=== PATIENT | female | born 1995 | race Caucasian/White ===

== ENCOUNTER 2019-01-10 01:10 | Outpatient (CLI) | payer OTHER ==
[~2019-01-10] VITALS: Ht 162.6 cm; Wt 56.8 kg
[2019-01-10 01:56] LABS: MICROSCOPIC INDICATED
[2019-01-10] MEDS ORDERED: TERBUTALINE 1 MG/ML, 1ML ONE (02:04)
[2019-01-10] MEDS ORDERED: TERBUTALINE 1 MG/ML, 1ML SQ ONE (02:30)
== END 2019-01-10 03:35 | disposition home or self-care (01) ==
LOC: LDOP 01:10
PROVIDERS: ATTEND Obstetrics & Gynecology
DX: O26.893 Other specified pregnancy related conditions, third trimester (principal); R10.9 Unspecified abdominal pain; Z3A.34 34 weeks gestation of pregnancy
CPT/HCPCS: 59025; 81001; 87081; 87086; 99211; J3105; G0463

== ENCOUNTER 2019-01-10 22:16 | Observation (INO) | payer OTHER ==
[~2019-01-10] VITALS: Ht 162.6 cm; Wt 56.8 kg
[2019-01-11] MEDS ORDERED: BETAMETHASONE 6 MG/ML, 5ML IM ONE ×2 (06:00→06:07)
[2019-01-11 06:37] LABS: BASOPHILS % (AUTO) 1 % (0-1); EOSINOPHILS # (AUTO) 0.27 x10^3/uL (0-0.4); EOSINOPHILS % (AUTO) 3 % (1-7); LYMPHOCYTES # (AUTO) 2.87 x10^3/uL (1-3.4); LYMPHOCYTES % (AUTO) 28 % (22-44); MD NO; MEAN CORPUSCULAR HEMOGLOBIN 30.5 pg (27.0-34.8); MEAN CORPUSCULAR HGB CONC 32.9 g/dL (32.4-35.8); MEAN CORPUSCULAR VOLUME 92.5 fL (80-100); MEAN PLATELET VOLUME 9.6 fL (7.4-10.4); MONOCYTES # (AUTO) 0.76 x10^3/uL (0.2-0.8); MONOCYTES % (AUTO) 7 % (2-9); NEUTROPHILS # (AUTO) 6.34 x10^3/uL (1.8-6.8); NEUTROPHILS % (AUTO) 61 % (42-75); PLATELET COUNT 345 x10^3/uL (130-400); RED BLOOD COUNT 3.62 x10^6/uL (3.82-5.3); RED CELL DISTRIBUTION WIDTH 14.4 % (9.6-15.2)
[2019-01-11 07:10] VITALS: BP 100/61
[2019-01-12] MEDS ORDERED: BETAMETHASONE 6 MG/ML, 5ML IM ONE (06:00)
== END 2019-01-12 11:13 | disposition home or self-care (01) ==
LOC: LDOP 22:16 → UNDOADMOB 23:17 → EDIP 23:17 → LDIP 01-11 04:58
PROVIDERS: ADMIT Obstetrics & Gynecology; ATTEND Obstetrics & Gynecology
DX: O60.03 Preterm labor without delivery, third trimester (principal); O99.513 Diseases of the respiratory system complicating pregnancy, third trimester; J45.909 Unspecified asthma, uncomplicated; Z3A.34 34 weeks gestation of pregnancy
CPT/HCPCS: 36415; 59025; 76815; 85025; 96372; G0378; J0702

== ENCOUNTER 2019-01-17 20:36 | Inpatient (IN) | payer OTHER ==
[~2019-01-17] VITALS: Ht 162.6 cm; Wt 56.8 kg
[2019-01-17 20:45] VITALS: BP 103/66
[2019-01-17] MEDS ORDERED: TERBUTALINE 1 MG/ML, 1ML ONE (21:11)
[2019-01-17] MEDS ORDERED: TERBUTALINE 1 MG/ML, 1ML SQ ONE (21:30)
[2019-01-17 21:56] LABS: MICROSCOPIC INDICATED
[2019-01-17] MEDS ORDERED: LACTATED RINGERS 1,000 ML IVBOLUS ONE (22:30)
[2019-01-17] MEDS ORDERED: MEPERIDINE/PF 50 MG/ML IM PRN (22:30)
[2019-01-17] MEDS ORDERED: PROMETHAZINE 25 MG/ML, 1ML IM PRN (22:30)
[2019-01-17] MEDS ORDERED: D5%-LACTATED RINGERS 1,000 ML IV SCH (22:30)
[2019-01-17] MEDS ORDERED: MEPERIDINE/PF 100 MG/ML ONE (22:35)
[2019-01-17] MEDS ORDERED: PROMETHAZINE 25 MG/ML, 1ML ONE ×2 (22:45)
[2019-01-17] MEDS ORDERED: PREN1TAB60 PO (23:36)
[2019-01-17] MEDS ORDERED: NIFE20CA PO (23:36)
[2019-01-18] MEDS ORDERED: TERBUTALINE 1 MG/ML, 1ML SQ PRN (00:23)
[2019-01-18] MEDS ORDERED: hydrOXYzine 50 MG/ML IM PRN (00:30)
[2019-01-18] MEDS ORDERED: OXYTOCIN 30U/ 0.9% NaCL 500ML 500 ML IV ONE (04:34)
[2019-01-18] MEDS ORDERED: D5%-LACTATED RINGERS 1,000 ML IV SCH (04:34)
[2019-01-18] MEDS ORDERED: FENTANYL/BUPIV./NS/PF 250 ML EPIDCONT SCH ×2 (04:38→06:39)
[2019-01-18] MEDS: LACTATED RINGERS 1,000 ML IV SCH ×2 (04:45→05:59)
[2019-01-18] MEDS ORDERED: ONDANSETRON 2MG/ML, 2ML IVPush PRN ×2 (05:00→07:00)
[2019-01-18] MEDS ORDERED: NEWBORN KIT ONE (05:01)
[2019-01-18] MEDS ORDERED: OXYTOCIN 30U/ 0.9% NaCL 500ML 500 ML ONE (05:01)
[2019-01-18 05:26] LABS: MEAN CORPUSCULAR HEMOGLOBIN 31.3 pg (27.0-34.8); MEAN CORPUSCULAR HGB CONC 33.9 g/dL (32.4-35.8); MEAN CORPUSCULAR VOLUME 92.1 fL (80-100); MEAN PLATELET VOLUME 9.9 fL (7.4-10.4); PLATELET COUNT 321 x10^3/uL (130-400); RED BLOOD COUNT 3.42 x10^6/uL (3.82-5.3); RED CELL DISTRIBUTION WIDTH 14.5 % (9.6-15.2)
[2019-01-18 05:47] LABS: MD YES
[2019-01-18 05:48] LABS: <PLATELET ESTIMATE> ADEQUATE; <PLT MORPHOLOGY> NORMAL PLT MORPH; <RBC MORPHOLOGY> NORMAL; LYMPHS% (MANUAL) 2 % (22-44); MONOS#(MANUAL) 0.75 x10^3/uL (0.3-2.7); MONOS% (MANUAL) 3 % (2-9); SEG#(MANUAL) 23.75 x10^3/uL (1.8-6.8); SEGS% (MANUAL) 95 % (42-75)
[2019-01-18] MEDS ORDERED: BUPIVACAINE 0.25% ONE ×2 (05:51→10:20)
[2019-01-18] MEDS ORDERED: FENTANYL/BUPIV./NS/PF 250 ML EPIDCONT ONE (05:51)
[2019-01-18] MEDS ORDERED: LACTATED RINGERS 1,000 ML IV SCH (06:39)
[2019-01-18] MEDS ORDERED: LACTATED RINGERS 1,000 ML IVBOLUS PRN (07:00)
[2019-01-18] MEDS ORDERED: DIPHENHYDRAMINE 50 MG/ML, 1ML IVPush PRN (07:00)
[2019-01-18] MEDS ORDERED: NALOXONE 0.4 MG/ML, 1ML IVPush PRN (07:00)
[2019-01-18] MEDS ORDERED: EPHEDRINE 50 MG/ML, 1ML IVPush PRN (07:00)
[2019-01-18] MEDS: OXYTOCIN 30U/ 0.9% NaCL 500ML 500 ML IV SCH ×2 (12:48→22:48)
[2019-01-18] MEDS ORDERED: RHOGAM FROM BLOOD BANK 1 NOTE EA IM/IV ONE (13:00)
[2019-01-18] MEDS ORDERED: MAGNESIUM HYDROXIDE 8%, 30ML UDC PO PRN (13:00)
[2019-01-18] MEDS ORDERED: MEASLES,MUMPS&RUBELLA VACC/PF 0.5 ML SQ PRN (13:00)
[2019-01-18] MEDS ORDERED: MISOPROSTOL 200 MCG TABLET PR PRN (13:00)
[2019-01-18] MEDS ORDERED: ACETAMINOPHEN 325 MG TABLET PO PRN ×2 (13:00)
[2019-01-18] MEDS ORDERED: HYDROcodone/APAP 5/325 TABLET PO PRN (13:00)
[2019-01-18] MEDS ORDERED: IBUPROFEN 600 MG TABLET ONE (15:09)
[2019-01-18] MEDS: IBUPROFEN 600 MG TABLET PO PRN ×2 (15:14→22:39)
[2019-01-18] MEDS ORDERED: OXYcodone/APAP 5/325MG TABLET ONE (15:25)
[2019-01-18 16:15] VITALS: BP 96/60
[2019-01-18 20:00] VITALS: BP 104/67
[2019-01-18 20:49] LABS: MEAN CORPUSCULAR HEMOGLOBIN 31.1 pg (27.0-34.8); MEAN CORPUSCULAR HGB CONC 33.9 g/dL (32.4-35.8); MEAN CORPUSCULAR VOLUME 91.6 fL (80-100); MEAN PLATELET VOLUME 9.6 fL (7.4-10.4); PLATELET COUNT 319 x10^3/uL (130-400); RED BLOOD COUNT 3.56 x10^6/uL (3.82-5.3); RED CELL DISTRIBUTION WIDTH 14.7 % (9.6-15.2)
[2019-01-18 21:19] LABS: MD NO
[2019-01-18] MEDS: HYDROcodone/APAP 5/325 TABLET PO PRN (23:43)
[2019-01-19 01:00] VITALS: BP 86/45
[2019-01-19 05:15] VITALS: BP 92/54
[2019-01-19] MEDS: IBUPROFEN 600 MG TABLET PO PRN ×2 (08:24→16:32)
[2019-01-19] MEDS: PRENATAL VIT/IRON/FA 1 EACH TABLET PO SCH (08:24)
[2019-01-19] MEDS: DOCUSATE 100 MG CAPSULE PO PRN (08:24)
[2019-01-19 08:30] VITALS: BP 105/63
[2019-01-19] MEDS: OXYTOCIN 30U/ 0.9% NaCL 500ML 500 ML IV SCH ×2 (08:48→18:48)
[2019-01-19] MEDS: HYDROcodone/APAP 5/325 TABLET PO PRN (12:45)
[2019-01-19 16:37] VITALS: BP 109/74
[2019-01-19 21:00] VITALS: BP 102/62
[2019-01-20] MEDS: IBUPROFEN 600 MG TABLET PO PRN ×3 (00:46→18:39)
[2019-01-20 01:00] VITALS: BP 114/73
[2019-01-20] MEDS: HYDROcodone/APAP 5/325 TABLET PO PRN ×3 (05:29→18:40)
[2019-01-20 05:36] LABS: BASOPHILS # (AUTO) 0.05 x10^3/uL (0-0.1); BASOPHILS % (AUTO) 0 % (0-1); EOSINOPHILS # (AUTO) 0.08 x10^3/uL (0-0.4); EOSINOPHILS % (AUTO) 1 % (1-7); LYMPHOCYTES # (AUTO) 1.69 x10^3/uL (1-3.4); LYMPHOCYTES % (AUTO) 11 % (22-44); MD NO; MEAN CORPUSCULAR HGB CONC 33.9 g/dL (32.4-35.8); MEAN CORPUSCULAR VOLUME 91.4 fL (80-100); MEAN PLATELET VOLUME 8.7 fL (7.4-10.4); MONOCYTES # (AUTO) 0.48 x10^3/uL (0.2-0.8); MONOCYTES % (AUTO) 3 % (2-9); NEUTROPHILS # (AUTO) 12.71 x10^3/uL (1.8-6.8); NEUTROPHILS % (AUTO) 85 % (42-75); PLATELET COUNT 311 x10^3/uL (130-400); RED BLOOD COUNT 3.23 x10^6/uL (3.82-5.3)
[2019-01-20 07:30] VITALS: BP 90/50
[2019-01-20] MEDS: DOCUSATE 100 MG CAPSULE PO PRN (12:09)
[2019-01-20] MEDS: PRENATAL VIT/IRON/FA 1 EACH TABLET PO SCH (12:09)
[2019-01-20] MEDS ORDERED: HYDR-3240 PO (14:44)
[2019-01-20] MEDS ORDERED: IBUP-1222 PO (14:44)
== END 2019-01-20 18:40 | disposition home or self-care (01) | DRG 807 ==
LOC: LDOP 20:36 → LDIP 22:32 → OBSVTOIN 22:32 → 2NW 01-18 15:36
PROVIDERS: ADMIT Obstetrics & Gynecology; ATTEND Obstetrics & Gynecology
PROC: 0HQ9XZZ Repair Perineum Skin, External Approach (ICD-10-PCS; principal; 2019-01-18)
PROC: 10E0XZZ Delivery of Products of Conception, External Approach (ICD-10-PCS; 2019-01-18)
DX: O64.0XX0 Obstructed labor due to incomplete rotation of fetal head, not applicable or unspecified (principal); Z37.0 Single live birth; O70.0 First degree perineal laceration during delivery; Z3A.36 36 weeks gestation of pregnancy; O76 Abnormality in fetal heart rate and rhythm complicating labor and delivery
CPT/HCPCS: 36415; J7121; 81001; 85025; 86850; 86900; 87086; 88305; G0378; J2175; J2550; J3410; J2590; J3010; J3105; J7120